=== PATIENT | female | born 1965 | race Caucasian/White ===

== ENCOUNTER 2017-02-07 01:16 | Emergency (ER) | payer OTHER ==
[2017-02-07 01:28] VITALS: PULSE 90; TEMP 98.9
[2017-02-07 02:03] VITALS: BP 133/102; RESP 20; O2SAT 98
== END 2017-02-07 02:02 | disposition home or self-care (01) ==
LOC: ED 01:16
DX: S62.326A Displaced fracture of shaft of fifth metacarpal bone, right hand, initial encounter for closed fracture (principal); W18.30XA Fall on same level, unspecified, initial encounter
CPT/HCPCS: 73130; 99283

== ENCOUNTER 2017-02-24 10:57 | Outpatient (CLI) | payer OTHER ==
[2017-02-07 02:03] VITALS: O2SAT 98
== END 2017-02-24 10:58 | disposition home or self-care (01) ==
LOC: CONVCARE 10:57
PROVIDERS: ATTEND Orthopaedic Surgery
DX: S62.326D Displaced fracture of shaft of fifth metacarpal bone, right hand, subsequent encounter for fracture with routine healing (principal)
CPT/HCPCS: 73130

== ENCOUNTER 2017-03-14 09:41 | Outpatient (CLI) | payer OTHER ==
[2017-02-07 02:03] VITALS: O2SAT 98
== END 2017-03-14 09:42 | disposition home or self-care (01) ==
LOC: CONVCARE 09:41
PROVIDERS: ATTEND Orthopaedic Surgery
DX: S62.326D Displaced fracture of shaft of fifth metacarpal bone, right hand, subsequent encounter for fracture with routine healing (principal)
CPT/HCPCS: 73130

== ENCOUNTER 2017-08-15 13:07 | Outpatient (CLI) | payer OTHER ==
[2017-02-07 02:03] VITALS: O2SAT 98
== END 2017-08-15 13:08 | disposition home or self-care (01) ==
LOC: CONVCARE 13:07
PROVIDERS: ATTEND Orthopaedic Surgery
DX: S62.306D Unspecified fracture of fifth metacarpal bone, right hand, subsequent encounter for fracture with routine healing (principal)
CPT/HCPCS: 73130